=== PATIENT | male | born 1945 | race Asian ===

== ENCOUNTER 2020-12-26 16:51 | Emergency (ER) | payer MEDICARE ==
--- NOTE | 2020-12-26 19:37 | Emergency Department Report ---
<GERARDO ZELAYA - Last Filed: 12/26/20 22:07> ED General Adult HPI - General Chief complaint: Extremity Injury, Lower Stated complaint: FALL/LT FOOT SWOLLEN Time Seen by Provider: 12/26/20 18:56 Source: patient Mode of arrival: Wheelchair Limitations: No Limitations - History of Present Illness Initial comments: 75-year-old male patient with history of diabetes and hyperlipidemia presents to the emergency department with complaints of traumatic left foot/left ankle pain starting 5 days ago followed by progressively worsening swelling of the left lower extremity starting 2 days ago. Patient states his symptoms began after he accidentally twisted his ankle. Patient also noticed blisters on his left lower extremity as well, which began rupturing today. He is not anticoagulated. He is compliant with his medication regimen. Denies hip pain, knee pain, chest pain, shortness of breath, paresthesias, numbness. Denies other complaints at this time. - Related Data Previous Rx's Medication Instructions Recorded Last Taken Type Naproxen [Naprosyn] 500 mg PO BID #20 tablet 12/26/20 Unknown Rx Allergies Allergy/AdvReac Type Severity Reaction Status Date / Time codeine Allergy Unknown Verified 12/26/20 18:09 ED Review of Systems Other: GENERAL: Negative for fever, chills, weight change, anorexia, fatigue. ENT: Negative for ear pain, difficulty hearing, sore throat, nasal congestion, epistaxis. CARDIOVASCULAR: Negative for chest pain, palpitations, lower extremity swelling. PULMONARY: Negative for cough, dyspnea, wheezing, orthopnea, cyanosis. GASTROINTESTINAL: Negative for abdominal pain, nausea, vomiting, diarrhea, constipation. MUSCULOSKELETAL: As if her left lower extremity pain and swelling. NEUROLOGICAL: Negative for headache, seizure, syncope, paresthesias, weakness. INTEGUMENTARY: Positive for blisters. HEMATOLOGICAL: Negative for hemoptysis, hematemesis, hematochezia, hematuria. PSYCHIATRIC: Negative for hallucinations, suicidal ideation, homicidal ideation, anxiety, depression. ED Past Medical Hx - Past Medical History Previous Medical History?: Yes Hx Hypertension: Yes Hx Diabetes: Yes Additional medical history: cholesterol - Social History Smoking Status: Never Smoker Substance Use Type: None - Medications Home Medications: Home Medications Medication Instructions Recorded Confirmed Last Taken Type Naproxen [Naprosyn] 500 mg PO BID #20 tablet 12/26/20 Unknown Rx ED Physical Exam - General Limitations: No Limitations - Other Other exam information: General: Awake and alert. No acute distress. Head: Atraumatic, normocephalic. Eyes: EOMI. Pupils are equal and round. Normal sclera and conjunctiva. ENT: Oral mucosa is moist. Normal pharyngeal exam. Neck: Supple. No lymphadenopathy. Pulmonary: No respiratory distress. Clear to auscultation bilaterally. Cardiac: Regular rate and rhythm. Skin: Warm and dry. No rashes. Abdomen: Soft, non-tender, non-protuberant. No guarding, rigidity, or rebound. Bowel sounds are normal. No organomegaly or masses noted. Back: Normal alignment. No CVA tenderness. Extremities: Tenderness to palpation throughout the left foot/ankle with significant pedal and pretibial pitting edema. Multiple ruptured blisters noted to the distal left lower extremity with active drainage. Diminished warmth on palpation throughout the left foot as compared with the right. Brisk capillary refill; dorsalis pedis pulse difficult to palpate secondary to soft tissue swelling. Sensation intact. Neurological: Alert and oriented, appropriately interactive, no focal deficits. Psych: Cooperative. Appropriate mood and affect. Speech is evenly metered. Thoughts are logically construed. ED Medical Decision Making - Lab Data Result diagrams: 12/26/20 19:31 12/26/20 19:31 - Medical Decision Making Differential diagnosis including but not limited to: arterial occlusion, deep vein thrombosis, cellulitis, fracture, peripheral vascular disease Care of patient transferred to Dr. Lynn, attending emergency physician, pending results of diagnostic work-up. ED Disposition Clinical Impression: Left fibular fracture Disposition: DC-01 TO HOME OR SELFCARE Condition: Stable Instructions: Tibial and Fibular Fractures, Cast or Splint Care, Adult Referrals: DANIEL ZARAGOZA MD [Staff Physician] - 2-3 Days <DAKSHA LYNN - Last Filed: 12/26/20 23:11> ED Review of Systems ROS: Stated complaint: FALL/LT FOOT SWOLLEN Other details as noted in HPI ED Course Vital Signs 12/26/20 18:11 Temperature 98.7 F Pulse Rate 79 Respiratory 18 Rate Blood Pressure 167/72 [Left] O2 Sat by Pulse 100 Oximetry ED Medical Decision Making - Lab Data Result diagrams: 12/26/20 19:31 12/26/20 19:31 - Radiology Data Radiology results: report reviewed, image reviewed - Medical Decision Making CTA shows left fibular fracture. No significant arterial stenosis present. On exam, patient has swelling to the left ankle and foot, so unable to palpate a DP pulse. However, both feet are equal in temperature. Cap refill is normal bilaterally. Color is normal bilaterally. Will place short Delano splint and have patient follow-up with Ortho. Critical care attestation.: If time is entered above; I have spent that time in minutes in the direct care of this critically ill patient, excluding procedure time. ED Disposition Is pt being admited?: No Time of Disposition: 22:58
[2020-12-26 19:48] LABS: Basophils # (Auto) 0.1 K/mm3 (0.0-0.1); Basophils % (Auto) 0.7 % (0.0-1.8); Eosinophils # (Auto) 0.3 K/mm3 (0.0-0.4); Eosinophils % (Auto) 2.4 % (0.0-4.3); Hematocrit 35.1 % (35.5-45.6); Hemoglobin 11.9 gm/dl (11.8-15.2); Lymphocytes # (Auto) 2.7 K/mm3 (1.2-5.4); Mean Corpuscular HGB Conc 34 % (32-34); Mean Corpuscular Volume 84 fl (84-94); Monocytes # (Auto) 0.8 K/mm3 (0.0-0.8); Monocytes % (Auto) 7.7 % (0.0-7.3); Platelet Count 355 K/mm3 (140-440); Red Blood Count 4.18 M/mm3 (3.65-5.03); Red Cell Distribution Width 13.9 % (13.2-15.2)
[2020-12-26 20:06] LABS: Albumin 4.3 g/dL (3.9-5); Calcium 9.2 mg/dL (8.4-10.2); INR 0.97 (0.87-1.13); Partial Thromboplastin Time 28.2 Sec. (24.2-36.6)
--- NOTE | 2020-12-26 22:19 | Cat Scan Report ---
CT ANGIOGRAPHY OF THE PELVIS WITH BILATERAL LOWER EXTREMITY RUNOFF INDICATION / CLINICAL INFORMATION: Left ankle injury 5 days ago with increasing swelling/blisters. De creased warmth and diminished dorsalis pedis pulse. TECHNIQUE: Axial CT images were obtained after injection of 100 cc Omnipaque [address] A protocol. 3 plane MIP / 3D reconstructions were produced. All CT scans at this location are perform ed using CT dose reduction for ALARA by means of automated exposure control. COMPARISON: None available. FINDINGS: There are moderate atherosclerotic calcifications involving the distal abdominal aorta, common iliac arteries, internal iliac arteries and femoral arteries bilaterally. There is no evidence of hemodynam ically significant stenosis. I see no evidence of thrombosis, aneurysm or dissection. There is three- vessel runoff to the level of both ankles. There is an acute fracture of the distal left fibula. There is mild to moderate associated soft tissu e swelling. The prostate gland is moderately enlarged. No other abnormality is seen in the pelvis. IMPRESSION: No evidence of hemodynamically significant stenosis. Signer Name: Eric Goodwin MD Signed: 12/26/2020 10:15 PM Workstation Name: [id number]
[2020-12-27 00:50] VITALS: BP 154/90
== END 2020-12-27 00:50 | disposition home or self-care (01) ==
LOC: ED 16:51
DX: S82.492A Other fracture of shaft of left fibula, initial encounter for closed fracture (principal); I10 Essential (primary) hypertension; E11.9 Type 2 diabetes mellitus without complications; E78.00 Pure hypercholesterolemia, unspecified; Z88.5 Allergy status to narcotic agent; Z79.899 Other long term (current) drug therapy; X50.1XXA Overexertion from prolonged static or awkward postures, initial encounter; Y93.89 Activity, other specified; Y92.89 Other specified places as the place of occurrence of the external cause; Y99.8 Other external cause status
CPT/HCPCS: 29515; 36415; 73706; 80053; 82962; 85025; 85610; 85730; 99284; Q9967